=== PATIENT | female | born 1980 | race Caucasian/White ===

== ENCOUNTER 2021-03-24 07:31 | Emergency (ER) | payer SELFPAY ==
[~2021-03-24] VITALS: Ht 162.6 cm; Wt 65.0 kg
[2021-03-24 07:48] VITALS: BP 142/92
== END 2021-03-24 08:30 | disposition home or self-care (01) ==
LOC: ER 07:31
DX: R53.1 Weakness (principal); Z88.2 Allergy status to sulfonamides
CPT/HCPCS: 99283